=== PATIENT | male | born 1985 | race Caucasian/White ===

== ENCOUNTER 2018-06-15 10:15 | Inpatient (IN) ==
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
[2018-06-15 11:05] LABS: Baso # (Auto) 0.1 th/mm3 (0.0-0.2); Baso % (Auto) 0.6 % (0.0-2.0); Eos # (Auto) 0.1 th/mm3 (0.0-0.4); Eos % (Auto) 0.8 % (0.0-4.0); Hematocrit 41.6 % (39.0-51.0); Hemoglobin 14.2 gm/dL (13.0-17.0); Lymph # (Auto) 1.7 th/mm3 (1.0-4.8); Lymph % (Auto) 10.7 % (9.0-44.0); Mean Corpuscular HGB Conc 34.2 % (32.0-36.0); Mean Corpuscular Hemoglobin 32.5 pg (27.0-34.0); Mean Corpuscular Volume 95.1 fL (80.0-100.0); Mean Platelet Volume 6.9 fL (7.0-11.0); Mono # (Auto) 1.2 th/mm3 (0.0-0.9); Mono % (Auto) 7.6 % (0.0-8.0); Neut # (Auto) 12.4 th/mm3 (1.8-7.7); Neut % (Auto) 80.3 % (16.0-70.0); Platelet Count 441 th/mm3 (150-450); Red Blood Count 4.37 mil/mm3 (4.50-5.90); Red Cell Distribution Width 12.8 % (11.6-17.2); White Blood Count 15.5 th/mm3 (4.0-11.0)
[2018-06-15] MEDS: Sod Chloride 0.9% Inj 1,000 ML IV.SIG SCH ×2 (11:18→11:25)
--- NOTE | 2018-06-15 11:30 | CT ---
EXAM DATE: 06/15/2018 11:25 AM EDT AGE/SEX: 33 years / Male INDICATIONS: Altered mental status CLINICAL DATA: This is the patient's initial encounter. Patient reports that signs and symptoms have been present for 1 day and indicates a pain score of 0/10. MEDICAL/SURGICAL HISTORY: None. None. RADIATION DOSE: 56.43 CTDI (mGy) COMPARISON: [facility] [place], CT HEAD W/O CONTRAST, 06/09/2018. . TECHNIQUE: CT of the head without contrast. Using automated exposure control and adjustment of the mA and/or kV according to patient size, radiation dose was kept as low as reasonably achievable to ob tain optimal diagnostic quality images. DICOM format image data is available electronically for revi ew and comparison. FINDINGS: Cerebrum: The ventricles are normal for age. No evidence of midline shift, mass lesion, hemorrhage or acute infarction. No extraaxial fluid collections are seen. Posterior Fossa: The cerebellum and brainstem are intact. The 4th ventricle is midline. The cerebe llopontine angle is unremarkable. Extracranial: The visualized portion of the orbits is intact. Skull: The calvaria is intact. No evidence of skull fracture. CONCLUSION: 1. Stable exam 2. No evidence of acute process. . Electronically signed by: Tj Salinas MD 06/15/2018 11:28 AM EDT
[2018-06-15 11:36] LABS: Albumin 4.4 g/dL (3.4-5.0); Anion Gap 9 meq/L (5-15); Aspartate Aminotransferase 9 U/L (15-37); Blood Urea Nitrogen 8 mg/dL (7-18); Calcium 9.1 mg/dL (8.5-10.1); Carbon Dioxide 25.1 meq/L (21.0-32.0); Chloride 102 meq/L (98-107); Glomerular Filtration Rate Greater Than 89 mL/min (>89); Glucose,Random 145 mg/dL (74-106); Potassium 3.7 meq/L (3.5-5.1); Sodium 136 meq/L (136-145)
[2018-06-15 11:37] LABS: Alanine Aminotransferase 14 U/L (12-78)
[2018-06-15 11:47] LABS: Alkaline Phosphatase 77 U/L (45-117); Thyroid Stimulating Hormone 0.821 uIU/mL (0.358-3.740); Total Protein 7.5 g/dL (6.4-8.2)
--- NOTE | 2018-06-15 12:25 | XR ---
EXAM DATE: 06/15/2018 12:18 PM EDT AGE/SEX: 33 years / Male INDICATIONS: Chest pain. Patient states he has a Cough. CLINICAL DATA: This is the patient's initial encounter. Patient reports that signs and symptoms have been present for 1 day and indicates a pain score of 0/10. MEDICAL/SURGICAL HISTORY: None. None. COMPARISON: [facility] [place], CHEST 1V SINGLE AP, 06/09/2018. . FINDINGS: A single AP view of the chest demonstrates the lungs to be symmetrically aerated without evidence of mass, infiltrate or effusion. The cardiomediastinal contours are unremarkable. Osseous structures a re intact. CONCLUSION: Negative for an acute process Electronically signed by: Brice Martinez MD 06/15/2018 12:23 PM EDT
[2018-06-15 13:41] LABS: Bilirubin,Urine Negative (Negative); Clarity,Urine Clear (Clear); Color,Urine Straw (Yellw/Straw); Glucose,Urine (UA) Negative (Negative); Leukocyte Esterase,Urine Negative (Negative); Nitrite,Urine Negative (Negative); Specific Gravity,Urine 1.002 (1.002-1.035)
[2018-06-15 14:00] LABS: Amphetamine Screen,Urine Neg (Neg); Barbiturate Screen,Urine Neg (Neg); Cannabinoid Screen,Urine Neg (Neg); Cocaine Screen,Urine Neg (Neg)
[2018-06-15 14:04] LABS: Opiate Screen,Urine Neg (Neg)
[2018-06-15] MEDS ORDERED: Bisacodyl 10 MG Supp RECTAL PRN (15:47)
[2018-06-15] MEDS ORDERED: Aluminum/Magnesium/Simethacone Susp 30 ML UDC PO PRN (15:47)
[2018-06-15] MEDS ORDERED: Methocarbamol 500 MG Tablet PO PRN (15:49)
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
[2018-06-15] MEDS: Senna/Docusate Sodium 8.6/50 MG Tablet PO SCH (20:53)
[2018-06-16 08:47] LABS: Anion Gap 11 meq/L (5-15); Blood Urea Nitrogen 16 mg/dL (7-18); Calcium 8.9 mg/dL (8.5-10.1); Carbon Dioxide 26.4 meq/L (21.0-32.0); Chloride 104 meq/L (98-107); Cholesterol 124 mg/dL (120-200); Glomerular Filtration Rate Greater Than 89 mL/min (>89); Glucose,Random 67 mg/dL (74-106); Potassium 4.1 meq/L (3.5-5.1); Sodium 141 meq/L (136-145); Triglycerides 109 mg/dL (42-150)
[2018-06-16 08:49] LABS: Chol/HDL Ratio 3.67 Ratio; HDL Cholesterol 33.7 mg/dL (40.0-60.0); LDL Cholesterol,Calculated 69 mg/dL (0-99)
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
[2018-06-16 16:46] LABS: Hemoglobin A1c 5.5 % (4.3-6.0)
[2018-06-16] MEDS: Senna/Docusate Sodium 8.6/50 MG Tablet PO SCH ×2 (19:01→20:48)
[2018-06-16] MEDS: OLANZapine 10 MG Tablet PO SCH (20:48)
[2018-06-17] MEDS: Sertraline 50 MG Tablet PO SCH (09:48)
[2018-06-17] MEDS: Senna/Docusate Sodium 8.6/50 MG Tablet PO SCH ×2 (09:48→21:06)
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
--- NOTE | 2018-06-17 13:48 | P.TTN ---
- Patient Problems Problems: 1. Discharge planning 2. Medication compliance 3. Knowledge deficit 4. Lack of coping skills - Progress Toward Goals Provider Present: Dr. Lj Kiran Provider Input: 06/16/18: new patient; no current input. Psychiatric Counselors Present: Antonia Lopez LCSW, Other Psychiatric Therapist Input: 06/16/18: Stephanie has not assessed this new pt as yet. Group Spec/RT/OT/DE [place] ROSA Present: Gary Alejandra OT Group Spec/RT/OT/DE [place] ROSA Input: 06/16/18: Pt on 1:1 supervision, he has not attended groups as of this note. Occupational Therapist Input: 06/16/18: Pt has been seen briefly, he appears somber, quiet, having either difficulty to engage by choice or via thought blocking. - Discharge Plan Other (Pt is new to psych unit, 1:1 supervision, discharge planning recommendations to ensue following assessments by medical staff.) - Documentation Teaching Recipient: Patient
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
[2018-06-17 15:54] LABS: Baso # (Auto) 0.1 th/mm3 (0.0-0.2); Eos # (Auto) 0.3 th/mm3 (0.0-0.4); Eos % (Auto) 2.9 % (0.0-4.0); Hematocrit 41.8 % (39.0-51.0); Hemoglobin 14.1 gm/dL (13.0-17.0); Lymph # (Auto) 2.2 th/mm3 (1.0-4.8); Lymph % (Auto) 19.9 % (9.0-44.0); Mean Corpuscular HGB Conc 33.8 % (32.0-36.0); Mean Corpuscular Hemoglobin 32.4 pg (27.0-34.0); Mean Corpuscular Volume 95.7 fL (80.0-100.0); Mean Platelet Volume 6.6 fL (7.0-11.0); Mono # (Auto) 1.3 th/mm3 (0.0-0.9); Neut # (Auto) 7.1 th/mm3 (1.8-7.7); Neut % (Auto) 64.2 % (16.0-70.0); Platelet Count 422 th/mm3 (150-450); Red Blood Count 4.36 mil/mm3 (4.50-5.90); Red Cell Distribution Width 12.7 % (11.6-17.2)
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
[2018-06-17] MEDS: OLANZapine 10 MG Tablet PO SCH (21:06)
[2018-06-18] MEDS: Sertraline 50 MG Tablet PO SCH (08:30)
[2018-06-18] MEDS: Senna/Docusate Sodium 8.6/50 MG Tablet PO SCH ×2 (08:33→20:12)
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
[2018-06-18] MEDS: OLANZapine 10 MG Tablet PO SCH ×2 (21:38→21:44)
[2018-06-19] MEDS: Senna/Docusate Sodium 8.6/50 MG Tablet PO SCH ×2 (08:20→20:39)
[2018-06-19] MEDS: Sertraline 50 MG Tablet PO SCH (08:23)
[2018-06-19] MEDS: OLANZapine 10 MG Tablet PO SCH ×3 (08:24→21:49)
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
[2018-06-20] MEDS: Sertraline 50 MG Tablet PO SCH (08:10)
[2018-06-20] MEDS: OLANZapine 10 MG Tablet PO SCH ×2 (08:10→22:10)
[2018-06-20] MEDS: Senna/Docusate Sodium 8.6/50 MG Tablet PO SCH ×2 (08:10→22:18)
--- NOTE | 2018-06-20 14:53 | P.PNPSY ---
Subjective Remarks: Patient was seen and case discussed with nursing. I also had a lengthy discussion with his parents were interested in a family meeting. Parents are concerned of his diagnosis whether it is PTSD or psychotic disorder. I informed him that he has had poor compliance with medication. After our pep talk yesterday he did take his nighttime meds and he did take his morning meds. He remains guarded and flat but is slightly more talkative. He denies hallucinations at this time though he appears to be internally preoccupied. He says he feels depressed and he has fleeting suicidal thoughts. He denies any persistent ideations intent or plan. Safety plan reviewed. Mental Status Examination Appearance: Appropriate Consciousness: Alert Orientation: x4 Motor Activity: Normal gait Speech: Hesitant, Slow, Other (Sparse and whispered) Language: Adequate Fund of Knowledge: Adequate Attention and Concentration: Adequate Memory: Unremarkable Mood: Sad, Other (Almost appears melancholic) Affect: Sad Thought Process & Associations: Loose associations, Disorganized, Tangential Thought Content: Preoccupations (With the accident prior to his admission), Obsessions (About the accident) Hallucination Type: None Delusion Type: None, Paranoid Suicidal Ideation: Yes (Fleeting) Suicidal Plan: No Suicidal Intention: No Homicidal Ideation: No Homicidal Plan: No Homicidal Intention: No Insight: Fair Judgment: Impulsive Assessment and Plan - Assessment (1) Major depressive disorder, recurrent, severe with psychotic features Code(s): F33.3 - Major depressive disorder, recurrent, severe with psychotic symptoms Status: Acute - Plan Plan: Continue current treatment plan Justification for Continued Inpatient Stay: Patient would decompensate in a less restrictive setting Request Healthcare Surrogate/Guardian Advocate?: No
[2018-06-21] MEDS: Sertraline 50 MG Tablet PO SCH (09:22)
[2018-06-21] MEDS: Senna/Docusate Sodium 8.6/50 MG Tablet PO SCH ×2 (09:22→20:34)
[2018-06-21] MEDS: OLANZapine 10 MG Tablet PO SCH ×2 (09:23→20:34)
--- NOTE | 2018-06-21 12:18 | P.TTN ---
- Patient Problems Problems: 1. Discharge planning 2. Medication compliance 3. Knowledge deficit 4. Lack of coping skills - Progress Toward Goals Provider Present: Dr. Lj Kiran Provider Input: 06/21/2018; patient medications are still being titrated and RN prompt and encouraged compliance. 06/16/18: new patient; no current input. Nurse(s) Present: RNMickie Nurse Input: 06/21/2018: Patient is noncompliant with treatment, and medication. Patient is very fearful and resistanted with service Psychiatric Counselors Present: Ольга Rodriguez, [facility], Other Psychiatric Therapist Input: 06/21/2018; counselor will speak with patient's parents regarding safe dc planning and follow-up requirement. 06/16/18: Stephanie has not assessed this new pt as yet. Group Spec/RT/OT/DE LA ROSA Present: Gary Alejandra OT Group Spec/RT/OT/DE LA ROSA Input: 06/16/18: Pt on 1:1 supervision, he has not attended groups as of this note. Occupational Therapist Input: 06/21/2018: per OT/ patient has not attended groups, continues to verbalize SI. 06/16/18: Pt has been seen briefly, he appears somber, quiet, having either difficulty to engage by choice or via thought blocking. - Discharge Plan Other (Pt is new to psych unit, 1:1 supervision, discharge planning recommendations to ensue following assessments by medical staff.) - Documentation Teaching Recipient: Patient
--- NOTE | 2018-06-22 08:21 | P.PNPSY ---
Subjective Remarks: This is the late entry progress note for my visit with this patient on 05/21. Patient was seen with nurse Mickie in his room with his sister. Chart reviewed. Patient discussed with nurse. It appears that yesterday patient was somewhat more irritable spitting out his medications saying it tasted funny. When asked about this the patient was irritable with poor eye contact stated that he wanted to be compliant but it tasted funny. He continues to exhibit significant depression and guilt along with hopelessness and helplessness related to the traumas that he has experienced. She is showing very little insight into this. I also did attempt to discuss exploring [facility] through the [facility]. He was quite negative about that also. The patient denies suicidality at this time, I still believe he is a high risk for suicidality. He is scheduled for [facility] [address] tomorrow. For now continue to encourage him to show compliance with his medications Review of Systems All other systems reviewed negative except as stated in HPI Mental Status Examination Appearance: Appropriate Consciousness: Alert Orientation: x4 Motor Activity: Normal gait Speech: Hesitant, Slow, Other (Sparse and whispered) Language: Adequate Fund of Knowledge: Adequate Attention and Concentration: Adequate Memory: Unremarkable Mood: Sad, Irritable, Other (Almost appears melancholic) Affect: Other (Decreased range and intensity) Thought Process & Associations: Loose associations, Disorganized, Tangential Thought Content: Preoccupations (With the accident prior to his admission), Obsessions (About the accident) Hallucination Type: None Delusion Type: None, Paranoid Suicidal Ideation: Yes (Fleeting) Suicidal Plan: No Suicidal Intention: No Homicidal Ideation: No Homicidal Plan: No Homicidal Intention: No Insight: Fair Judgment: Impulsive Assessment and Plan - Assessment (1) Major depressive disorder, recurrent, severe with psychotic features Code(s): F33.3 - Major depressive disorder, recurrent, severe with psychotic symptoms Status: Acute - Plan Plan: Patient remains severely depressed with some underlying anger paranoia and guilt. Trying mixed compliance with medication Justification for Continued Inpatient Stay: At this time patient would decompensate if placed in a lower level of care Discharge Planning: To be determined we need to explore if there are errors in the potential for [facility] resources Request Healthcare Surrogate/Guardian Advocate?: No
[2018-06-22] MEDS: OLANZapine 10 MG Tablet PO SCH ×2 (09:00→20:55)
[2018-06-22] MEDS: Sertraline 50 MG Tablet PO SCH (09:00)
[2018-06-22] MEDS: Senna/Docusate Sodium 8.6/50 MG Tablet PO SCH ×2 (09:01→20:55)
--- NOTE | 2018-06-22 11:50 | P.PNPSY ---
Subjective Remarks: Patient seen in his room with nurse Pete, chart reviewed, patient continues depressed with poor eye contact soft brief spoken speech. A very dejected introverted attitude. While he states he is not suicidal he also states he would take the suicide pill. He remains hopeless and helpless we will increase Zoloft to 50 mg daily Review of Systems All other systems reviewed negative except as stated in HPI Mental Status Examination Appearance: Appropriate Consciousness: Alert Orientation: x4 Motor Activity: Normal gait Speech: Hesitant, Slow, Other (Sparse and whispered) Language: Adequate Fund of Knowledge: Adequate Attention and Concentration: Adequate Memory: Unremarkable Mood: Sad, Irritable, Other (Almost appears melancholic) Affect: Other (Decreased range and intensity) Thought Process & Associations: Loose associations, Disorganized, Tangential Thought Content: Preoccupations (With the accident prior to his admission), Obsessions (About the accident) Hallucination Type: None Delusion Type: None, Paranoid Suicidal Ideation: Yes (Fleeting) Suicidal Plan: No Suicidal Intention: No Homicidal Ideation: No Homicidal Plan: No Homicidal Intention: No Insight: Fair Judgment: Impulsive Assessment and Plan - Assessment (1) Major depressive disorder, recurrent, severe with psychotic features Code(s): F33.3 - Major depressive disorder, recurrent, severe with psychotic symptoms Status: Acute - Plan Plan: Patient remains depressed and suicidal quite melancholic and anhedonic patient scheduled for [place] [address] [place] 2 days Justification for Continued Inpatient Stay: At this time patient would decompensate a place to a lower level of care Discharge Planning: To be determined Request Healthcare Surrogate/Guardian Advocate?: No
[2018-06-23] MEDS: OLANZapine 10 MG Tablet PO SCH ×2 (09:00→21:53)
[2018-06-23] MEDS: Sertraline 50 MG Tablet PO SCH (09:00)
[2018-06-23] MEDS: Senna/Docusate Sodium 8.6/50 MG Tablet PO SCH ×2 (09:01→21:55)
--- NOTE | 2018-06-23 18:16 | P.PNPSY ---
Subjective Remarks: Patient seen for follow up; chart reviewed. Discussion with nursing staff reported that patient suspected of taking his medications were taken this morning, continues with poor eye contact. Patient was found sitting hospital bed noted become cooperative. Patient noted with poor eye contact but has range and engaging interview today. Patient states that he is feeling "groggy" but has decreased energy concentration. Patient reports that they have slightly increasing, continues to have suicide ideations.. Review of Systems All other systems reviewed negative except as stated in HPI Mental Status Examination Appearance: Appropriate Consciousness: Alert Orientation: x4 Motor Activity: Normal gait Speech: Hesitant, Slow, Other (Sparse and whispered) Language: Adequate Fund of Knowledge: Adequate Attention and Concentration: Adequate Memory: Unremarkable Mood: Sad, Irritable, Other (Almost appears melancholic) Affect: Other (Decreased range and intensity) Thought Process & Associations: Loose associations, Disorganized, Tangential Thought Content: Preoccupations (With the accident prior to his admission), Obsessions (About the accident) Hallucination Type: None Delusion Type: None, Paranoid Suicidal Ideation: Yes (Fleeting) Suicidal Plan: No Suicidal Intention: No Homicidal Ideation: No Homicidal Plan: No Homicidal Intention: No Insight: Fair Judgment: Impulsive Assessment and Plan - Assessment (1) Major depressive disorder, recurrent, severe with psychotic features Code(s): F33.3 - Major depressive disorder, recurrent, severe with psychotic symptoms Status: Acute - Plan Plan: Patient this time continues to endorse suicidal ideations stating that they are becoming less frequent and less intense along with depressed mood. Continue current treatment. We will continue to monitor mood and behavior. Discharge planning a progress. Patient will present to mental health court tomorrow. Justification for Continued Inpatient Stay: At risk of further decompensation a lower level of care. Request Healthcare Surrogate/Guardian Advocate?: No
[2018-06-24] MEDS: Sertraline 50 MG Tablet PO SCH (08:04)
[2018-06-24] MEDS: Senna/Docusate Sodium 8.6/50 MG Tablet PO SCH ×2 (08:04→20:55)
[2018-06-24] MEDS: OLANZapine 10 MG Tablet PO SCH (08:04)
[2018-06-24] MEDS: OLANZapine 15 MG Tablet PO SCH (20:56)
--- NOTE | 2018-06-24 22:19 | P.PNPSY ---
Subjective Remarks: Patient seen for follow up; chart reviewed. Discussion with nursing staff reported that patient continues to be isolative. Patient presented to mental health court which patient agreed to continue hospitalization and patient was kept on a continuance. Patient later was found sitting on hospital bed, calm and cooperative. He states feeling afraid that someone is trying to get his organs". He is noted to be slightly distressed but redirectible. He was encouraged to participate in groups which he relunctantly agreed to. He states not feeling safe in the hospital. He mentions adequate appetite. Continues with paranoia and suicidal ideation. Review of Systems All other systems reviewed negative except as stated in HPI Mental Status Examination Appearance: Appropriate Consciousness: Alert Orientation: x4 Motor Activity: Normal gait Speech: Hesitant, Slow, Other (Sparse and whispered) Language: Adequate Fund of Knowledge: Adequate Attention and Concentration: Adequate Memory: Unremarkable Mood: Sad, Irritable, Other (Almost appears melancholic) Affect: Other (Decreased range and intensity) Thought Process & Associations: Loose associations, Disorganized, Tangential Thought Content: Preoccupations (With the accident prior to his admission), Obsessions (About the accident) Hallucination Type: None Delusion Type: None, Paranoid Suicidal Ideation: Yes (Fleeting) Suicidal Plan: No Suicidal Intention: No Homicidal Ideation: No Homicidal Plan: No Homicidal Intention: No Insight: Fair Judgment: Impulsive Assessment and Plan - Assessment (1) Major depressive disorder, recurrent, severe with psychotic features Code(s): F33.3 - Major depressive disorder, recurrent, severe with psychotic symptoms Status: Acute - Plan Plan: Patient continues with paranoia and suicidal ideations, will increase olanzapoine to 15mg pO BID for mood stabilization, continue to monitor mood and behavior.Continue to encourage patient to participate in groups and activities. Discharge planning in progess. Justification for Continued Inpatient Stay: At risk for further decompensation at lower level of care. Request Healthcare Surrogate/Guardian Advocate?: No
[2018-06-25] MEDS: Sertraline 50 MG Tablet PO SCH (09:25)
[2018-06-25] MEDS: OLANZapine 10 MG Tablet PO SCH (09:26)
[2018-06-25] MEDS: Senna/Docusate Sodium 8.6/50 MG Tablet PO SCH ×2 (09:26→21:31)
[2018-06-25] MEDS: OLANZapine 15 MG Tablet PO SCH (21:31)
--- NOTE | 2018-06-25 22:12 | P.PNPSY ---
Subjective Remarks: Patient seen for follow, chart reviewed. Discussion nursing staff reported the patient continued to be seclusive to his room but did attend group today. Patient was found lying hospital bed noted B, cooperative. Patient noted with slightly more engagement in interview continues with poor eye contact. Patient states he continues to feel distressed, reports his mood as being alright today " stating having spoken with his mother 2 days ago but did not elaborate. Patient continues to endorse paranoid ideations "a little bit" stating that he is in apparently by a gang related group. Patient reported feeling safe in the hospital at this time. Review of Systems All other systems reviewed negative except as stated in HPI Mental Status Examination Appearance: Appropriate Consciousness: Alert Orientation: x4 Motor Activity: Normal gait Speech: Hesitant, Slow, Other Language: Adequate Fund of Knowledge: Adequate Attention and Concentration: Adequate Memory: Unremarkable Mood: Sad, Other (Almost appears melancholic) Affect: Sad Thought Process & Associations: Loose associations, Disorganized Thought Content: Preoccupations (With the accident prior to his admission), Obsessions (About the accident) Hallucination Type: None Delusion Type: None, Paranoid Suicidal Ideation: Yes (Fleeting) Suicidal Plan: No Suicidal Intention: No Homicidal Ideation: No Homicidal Plan: No Homicidal Intention: No Insight: Fair Judgment: Impulsive Assessment and Plan - Assessment (1) Major depressive disorder, recurrent, severe with psychotic features Code(s): F33.3 - Major depressive disorder, recurrent, severe with psychotic symptoms Status: Acute - Plan Plan: Patient noted with improved affect during interview, continues with paranoid delusions. Patient denies any suicide ideations. Report feeling depressed. Continue current treatment. We will continue to monitor mood and behavior. Discharge planning a progress. Justification for Continued Inpatient Stay: At risk for further decompensation if at lower level of care. Request Healthcare Surrogate/Guardian Advocate?: No
[2018-06-26] MEDS: Senna/Docusate Sodium 8.6/50 MG Tablet PO SCH ×2 (08:34→20:22)
[2018-06-26] MEDS: Sertraline 50 MG Tablet PO SCH (08:34)
[2018-06-26] MEDS: OLANZapine 10 MG Tablet PO SCH (08:34)
--- NOTE | 2018-06-26 13:26 | P.PNPSY ---
Subjective Remarks: The patient was seen today for psychiatric reevaluation. Case was widely discussed with the staff. On my psychiatric evaluation the patient is mildly psychomotor retarded. With slow speech, blocking thought, but goal oriented. The patient reports that he feels a little more better today. He says that his mood is improved, but he seems to be objectively very depressed, with very flat affect and minimally responsive. The patient says that he does not want to kill himself, that he wants to get better, but at times he feels that people around want harm him. He denies suicidal and homicidal ideation, denies visual and auditory hallucinations Mental Status Examination Appearance: Appropriate Consciousness: Alert Orientation: x4 Motor Activity: Normal gait Speech: Hesitant, Slow, Other Language: Adequate Fund of Knowledge: Adequate Attention and Concentration: Adequate Memory: Unremarkable Mood: Sad, Other (Almost appears melancholic) Affect: Sad Thought Process & Associations: Loose associations, Disorganized Thought Content: Preoccupations (With the accident prior to his admission), Obsessions (About the accident) Hallucination Type: None Delusion Type: None, Paranoid Suicidal Ideation: Yes (Fleeting) Suicidal Plan: No Suicidal Intention: No Homicidal Ideation: No Homicidal Plan: No Homicidal Intention: No Insight: Fair Judgment: Impulsive Assessment and Plan - Assessment (1) Major depressive disorder, recurrent, severe with psychotic features Code(s): F33.3 - Major depressive disorder, recurrent, severe with psychotic symptoms Status: Acute - Plan Plan: Patient has a prominent flat affect, delay speech, blocking thought, seems to be paranoid, and very depressed. Patient contracted for safety in the unit. Denies suicidal and homicidal ideation. I will change one-to-one observation to close. Will increase Zoloft to 100 mg for depression Justification for Continued Inpatient Stay: She is acutely psychotic and very depressed. Request Healthcare Surrogate/Guardian Advocate?: No
[2018-06-26] MEDS ORDERED: Sertraline 100 MG Tablet PO SCH (14:00)
[2018-06-26] MEDS: OLANZapine 15 MG Tablet PO SCH (20:22)
[2018-06-27] MEDS: OLANZapine 10 MG Tablet PO SCH (08:03)
[2018-06-27] MEDS: Senna/Docusate Sodium 8.6/50 MG Tablet PO SCH ×2 (08:04→20:38)
[2018-06-27] MEDS: Sertraline 100 MG Tablet PO SCH (08:05)
--- NOTE | 2018-06-27 16:35 | P.PNPSY ---
Subjective Remarks: Pt seen and discussed with staff. Chart reviewed. He was admitted for psychosis and PTSD exacerbation and SI. Today he has had improved eye contact and has been less fixed on delusions. He has been compliant iw medications and eating well today. He was isolative today and has not gone out for fresh air or activities. He lies huddled in bed, wrapped in covers and is noted to be vigilant during interview Mental Status Examination Appearance: Appropriate Consciousness: Alert Orientation: x4 Motor Activity: Normal gait Speech: Hesitant, Slow, Other Language: Adequate Fund of Knowledge: Adequate Attention and Concentration: Adequate Memory: Unremarkable Mood: Sad, Other (Almost appears melancholic) Affect: Flat Thought Process & Associations: Other (somewhat concrete) Thought Content: Preoccupations (With the accident prior to his admission), Obsessions (About the accident) Hallucination Type: None Delusion Type: Paranoid (mild) Suicidal Ideation: Yes (Fleeting) Suicidal Plan: No Suicidal Intention: No Homicidal Ideation: No Homicidal Plan: No Homicidal Intention: No Insight: Fair Judgment: Impulsive Assessment and Plan - Assessment (1) Major depressive disorder, recurrent, severe with psychotic features Code(s): F33.3 - Major depressive disorder, recurrent, severe with psychotic symptoms Status: Acute - Plan Plan: Continue current tx plan Justification for Continued Inpatient Stay: impairments in reality testing Request Healthcare Surrogate/Guardian Advocate?: No
[2018-06-27] MEDS: OLANZapine 15 MG Tablet PO SCH (20:38)
[2018-06-28] MEDS: Senna/Docusate Sodium 8.6/50 MG Tablet PO SCH ×2 (08:12→20:24)
[2018-06-28] MEDS: Sertraline 100 MG Tablet PO SCH (08:12)
[2018-06-28] MEDS: OLANZapine 10 MG Tablet PO SCH (08:12)
--- NOTE | 2018-06-28 12:33 | P.TTN ---
- Patient Problems Problems: 1. Discharge planning 2. Medication compliance 3. Knowledge deficit 4. Lack of coping skills - Progress Toward Goals Provider Present: Dr. Lj Kiran, Dr. Ofelia Finley Provider Input: 06/28/2018; although patient has shown improvement, he continues to require med adjustment. 06/21/2018; patient medications are still being titrated and RN prompt and encouraged compliance. 06/16/18: new patient; no current input. Nurse(s) Present: RN Nurse Input: 06/28/2018; patient is eating, taking his medication without issues , lifted mood and behavior. 06/21/2018: Patient is noncompliant with treatment , and medication. Patient is very fearful and resistanted with service Psychiatric Counselors Present: Ольга Rodriguez [facility], Other Psychiatric Therapist Input: 06/28/2018; counselor will call parents to discuss dc planning and follow-up needs. 06/21/2018; counselor will speak with patient' s parents regarding safe dc planning and follow-up requirement. 06/16/18: Stephanie has not assessed this new pt as yet. Group Spec/RT/OT/DE LA ROSA Present: Gary Alejandra OT Group Spec/RT/OT/DE LA ROSA Input: 06/28/2018; patient participates with limited activities. 06/16/18: Pt on 1:1 supervision, he has not attended groups as of this note. Occupational Therapist Input: 06/21/2018: per OT/ patient has not attended groups, continues to verbalize SI. 06/16/18: Pt has been seen briefly, he appears somber, quiet, having either difficulty to engage by choice or via thought blocking. - Discharge Plan Other (Pt is new to psych unit, 1:1 supervision, discharge planning recommendations to ensue following assessments by medical staff.) - Documentation Teaching Recipient: Patient
[2018-06-28] MEDS: OLANZapine 15 MG Tablet PO SCH (20:24)
--- NOTE | 2018-06-28 21:47 | P.PNPSY ---
Subjective Remarks: Patient seen for follow, chart reviewed. Discussion nursing staff reported the patient noted to be less paranoid about his treatment, has been attending some groups although did not attend any yesterday. Patient was found sitting in hospital chair noted B, cooperative. Patient states that he is feeling "good" reports having been visited by his family yesterday which she states went well. He denies any suicide ideation last time being last week. Patient states he is going to go back to work. He states that he is feeling somewhat restless and use anxious to get back to his life. Patient reports improved appetite. Review of Systems All other systems reviewed negative except as stated in HPI Mental Status Examination Appearance: Appropriate Consciousness: Alert Orientation: x4 Motor Activity: Normal gait Speech: Unremarkable Language: Adequate Fund of Knowledge: Adequate Attention and Concentration: Adequate Memory: Unremarkable Mood: Sad (lessening) Affect: Flat (more reactive today) Thought Process & Associations: Linear Thought Content: Preoccupations (With the accident prior to his admission; minimal) Hallucination Type: None Delusion Type: Paranoid (mild) Suicidal Ideation: No Suicidal Plan: No Suicidal Intention: No Homicidal Ideation: No Homicidal Plan: No Homicidal Intention: No Insight: Fair Judgment: Impulsive Assessment and Plan - Assessment (1) Major depressive disorder, recurrent, severe with psychotic features Code(s): F33.3 - Major depressive disorder, recurrent, severe with psychotic symptoms Status: Acute - Plan Plan: Patient this time noted with improved affect, more engaging interview with improve eye contact. Patient no longer perseverative on accident prior to his admission reporting future oriented and wanted to return back to work. Patient denies SI, reports feeling less depressed. Will continue current treatment, continue to monitor mood and behavior. Discharge planning in progress. Justification for Continued Inpatient Stay: At risk of further decompensation at lower level of care. Request Healthcare Surrogate/Guardian Advocate?: No
[2018-06-29 05:28] VITALS: BP 112/68; PULSE 81; RESP 15; TEMP 97.7; O2SAT 96
[2018-06-29] MEDS: OLANZapine 10 MG Tablet PO SCH (08:07)
[2018-06-29] MEDS: Sertraline 100 MG Tablet PO SCH (08:07)
[2018-06-29] MEDS: Senna/Docusate Sodium 8.6/50 MG Tablet PO SCH (08:08)
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
== END 2018-06-29 13:15 | disposition home or self-care (01) ==
LOC: NEPD 10:15 → NEDA 15:46 → H4EA 18:52
PROVIDERS: ADMIT Student in an Organized Health Care Education/Training Program; ATTEND Student in an Organized Health Care Education/Training Program